=== PATIENT | male | born 1940 | race Asian ===

== ENCOUNTER 2018-02-27 08:54 | Emergency (ER) | payer MEDICARE, OTHER ==
[~2018-02-27] VITALS: Ht 157.5 cm; Wt 72.6 kg
[2018-02-27 08:55] VITALS: BP 138/69
[2018-02-27] MEDS ORDERED: Sodium Chloride 500ML 500 ML IV ONE (09:02)
[2018-02-27] MEDS ORDERED: TRADJENTA5 MG PO (09:10)
[2018-02-27] MEDS ORDERED: LOSARTAN POTASS50 MG ORAL (09:10)
[2018-02-27] MEDS ORDERED: LEVOTHYROXINE75 MCG ORAL (09:10)
[2018-02-27] MEDS ORDERED: GLIPIZIDE-METF1 EAC2 PO (09:10)
[2018-02-27] MEDS ORDERED: AMLODIPINE BESYL5 MG ORAL (09:10)
[2018-02-27] MEDS ORDERED: DEPAKOTE ER500 MG ORAL (09:10)
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
[2018-02-27] MEDS ORDERED: LORazepam Inj 2mg/ml 1ml IV ONE (09:15)
[2018-02-27 09:41] LABS: ANION GAP 10 mmol/L (5-15); BLOOD UREA NITROGEN 43 mg/dL (7-18); CALCIUM 8.9 MG/DL (8.5-10.1); CARBON DIOXIDE 25 MMOL/L (21-32); CHLORIDE 107 MMOL/L (98-107); HEMATOCRIT 33.3 % (42.0-52.0); MEAN CORPUSCULAR VOLUME 99 FL (80-99); PLATELET COUNT 126 K/UL (150-450); POTASSIUM 3.5 MMOL/L (3.5-5.1); RED BLOOD COUNT 3.38 M/UL (4.70-6.10); RED CELL DISTRIBUTION WIDTH 12.3 % (11.6-14.8); SODIUM 142 MMOL/L (136-145); WHITE BLOOD COUNT 4.2 K/UL (4.8-10.8)
[2018-02-27 09:47] LABS: ALANINE AMINOTRANSFERASE 39 U/L (12-78); ALBUMIN 3.2 G/DL (3.4-5.0); ALBUMIN/GLOBULIN RATIO 0.8 (1.0-2.7); ALKALINE PHOSPHATASE 63 U/L (46-116); ASPARTATE AMINO TRANSFERASE 43 U/L (15-37); BILIRUBIN,TOTAL 0.5 MG/DL (0.2-1.0)
--- NOTE | 2018-02-27 10:08 | Diagnostic Imaging Report ---
Indication: Dyspnea Comparison: None A single view chest radiograph was obtained. Findings: Mild pulmonary vascular congestion suspected with prominent vascularity and heart size. No definite pleural effusions are identified. Bones are unremarkable. Aorta is calcified. IMPRESSION: Suspected mild CHF
[2018-02-27 10:35] LABS: BILIRUBIN, URINE NEGATIVE (NEGATIVE); COLOR,URINE PALE YELLOW; GLUCOSE, URINE (UA) 2+ (NEGATIVE); KETONES,URINE 1+ (NEGATIVE); LEUKOCYTE ESTERASE ,URINE NEGATIVE (NEGATIVE); NITRITE,URINE NEGATIVE (NEGATIVE); PH,URINE 5 (4.5-8.0); PROTEIN,URINE 1+ (NEGATIVE); UROBILINOGEN,URINE NORMAL MG/DL (0.0-1.0)
[2018-02-27 10:36] LABS: APPEARANCE,URINE CLEAR
--- NOTE | 2018-02-27 11:57 | Diagnostic Imaging Report ---
Indication: Seizure Technique: Contiguous 5 mm thick transaxial imaging of the head obtained in a Siemens Sensation [address] scanner. Soft tissue and bone windows generated. Automatic Exposure Control was utilized. Total Dose length Product (DLP): 1488.[address] Dose Index Volume (CTDIvol): 70.38 mGy Comparison: none Findings: There is marked prominence of the ventricles, basal cisterns, and cerebral sulci consistent with atrophy. Moderate to severe nonspecific, white matter hypoattenuation is noted throughout the brain likely due to chronic small vessel disease. There is no midline shift, edema, acute hemorrhage, mass effect, or abnormal extra-axial fluid collections. Left frontal temporal craniotomy noted. Impression: No acute intracranial bleed, mass effect or edema identified. Severe atrophy of the brain. Left-sided craniotomy Moderate to severe chronic small vessel disease involving white matter tracts. The CT scanner at [facility] is accredited by the [employer] and the scans are performed using dose optimization techniques as appropriate to a performed exam including Automatic Exposure control.
[2018-02-27 12:43] VITALS: BP 128/62
--- NOTE | 2018-03-01 12:06 | Cardiology Report ---
APPROVED REPORT EKG Measurement Heart [id number] CO [id number] [id number] Normal sinus rhythm Left axis deviation Right bundle branch block Abnormal ECG
== END 2018-02-27 12:43 | disposition home or self-care (01) ==
LOC: EDBD 08:54 → EMR 09:30
DX: R55 Syncope and collapse (principal)
CPT/HCPCS: 36415; 70450; 71045; 80053; 80164; 80184; 80185; 80307; 81003; 84484; 85007; 85025; 93005; 96374; 99284; G0480; J7040; 80329